=== PATIENT | male | born 1940 | race Caucasian/White ===

== ENCOUNTER 2021-04-25 09:11 | Day surgery (SDC) | payer MEDICARE ==
[2021-04-25] MEDS ORDERED: Propofol 200 MG/20 ML SDV IV ONE (09:12)
[2021-04-25] MEDS ORDERED: Sodium Chloride 0.9% 10 ML Syringe FLUSH PRN (09:15)
[2021-04-25] MEDS: Lactated Ringers 1,000 ML IV SCH (10:00)
[2021-04-25 14:15] VITALS: PULSE 53
[2021-04-25 14:16] VITALS: BP 135/65
== END 2021-04-25 12:10 | disposition home or self-care (01) ==
LOC: FB.SDS 09:11
PROVIDERS: ATTEND Surgery
DX: Z12.11 Encounter for screening for malignant neoplasm of colon (principal); K57.30 Diverticulosis of large intestine without perforation or abscess without bleeding; K21.9 Gastro-esophageal reflux disease without esophagitis; M19.90 Unspecified osteoarthritis, unspecified site; Z91.030 Bee allergy status; Z91.041 Radiographic dye allergy status; Z86.010 Personal history of colon polyps; Z90.49 Acquired absence of other specified parts of digestive tract; Z98.890 Other specified postprocedural states; Z79.82 Long term (current) use of aspirin; Z79.899 Other long term (current) drug therapy
CPT/HCPCS: 00811-QZ; J2704; J7120

== ENCOUNTER 2021-07-01 14:51 | Emergency (ER) | payer MEDICARE ==
[2021-07-01] MEDS ORDERED: Lidocaine 1% with EPINEPHrine 1:100,000 10 ML MDV INFILT ONE (14:52)
[2021-07-01 15:07] VITALS: BP 177/85; PULSE 61
[2021-07-01] MEDS: Bacitracin Oint 1 GM U/D Packet TOP ONE (15:07)
[2021-07-01] MEDS: Diphtheria,Pertussis(Acell),Tetanus Vaccine 0.5 ML Syringe IM ONE (15:08)
== END 2021-07-01 15:40 | disposition home or self-care (01) ==
LOC: FB.ED 14:51
DX: S01.412A Laceration without foreign body of left cheek and temporomandibular area, initial encounter (principal); I25.10 Atherosclerotic heart disease of native coronary artery without angina pectoris; K21.9 Gastro-esophageal reflux disease without esophagitis; M19.90 Unspecified osteoarthritis, unspecified site; Z91.030 Bee allergy status; Z91.041 Radiographic dye allergy status; Z79.82 Long term (current) use of aspirin; Z23 Encounter for immunization; W22.09XA Striking against other stationary object, initial encounter
CPT/HCPCS: 12013; 90471; 90715; 99281; 99282-25

== ENCOUNTER 2024-02-06 13:54 | Inpatient (IN) | payer MEDICARE ==
[2024-02-06] MEDS ORDERED: Acetaminophen 325 MG Tab PO PRN (15:06)
[2024-02-06] MEDS ORDERED: Carboxymethylcellulose Sodium 0.5% Ophth Soln 15 ML Bottle EYEBOTH PRN (15:19)
[2024-02-06 16:02] LABS: BILIRUBIN,URINE NEGATIVE (NEGATIVE); GLUCOSE,URINE NORMAL (NORMAL); KETONES,URINE NEGATIVE (NEGATIVE); LEUKOCYTE ESTERASE,URINE NEGATIVE (NEGATIVE); NITRITE,URINE NEGATIVE (NEGATIVE); OCCULT BLOOD,URINE TRACE (NEGATIVE); PROTEIN,URINE NEGATIVE (NEGATIVE); UROBILINOGEN,URINE NORMAL (NEGATIVE)
[2024-02-06] MEDS: Sodium Chloride 0.9% 10 ML Syringe FLUSH PRN (16:03)
[2024-02-06 16:15] LABS: BASOPHILS PERCENT AUTO 0.7 % (0.3-3.8); EOSINOPHILS ABSOLUTE AUTO 0.1 x10-3/uL (0.0-0.6); EOSINOPHILS PERCENT AUTO 1.6 % (0.1-6.8); HEMATOCRIT 35.2 % (38.3-50.1); HEMOGLOBIN 12.5 g/dL (12.9-17.7); LYMPHOCYTES ABSOLUTE AUTO 0.9 x10-3/uL (0.5-4.5); LYMPHOCYTES PERCENT AUTO 19.3 % (15.8-45.3); MEAN CORPUSCULAR HEMOGLOBIN 33.3 pg (27.0-33.3); MEAN CORPUSCULAR HGB CONC 35.4 g/dL (28.7-35.3); MEAN PLATELET VOLUME 7.8 fL (6.7-11.0); MONOCYTES ABSOLUTE AUTO 0.5 x10-3/uL (0.0-1.2); MONOCYTES PERCENT AUTO 9.3 % (5.5-15.2); NEUTROPHILS ABSOLUTE AUTO 3.4 x10-3/uL (1.7-6.9); NEUTROPHILS PERCENT AUTO 69.1 % (40.3-71.8); RED BLOOD CELL COUNT 3.75 x10(6)uL (3.90-5.90); RED CELL DISTRIBUTION WIDTH 13.5 % (12.4-15.0); WHITE BLOOD CELL COUNT,WBC 4.9 x10-3/uL (3.2-10.1)
[2024-02-06 16:20] LABS: APPEARANCE,URINE CLEAR (CLEAR); BACTERIA,URINE OCCASIONAL (NS); COLOR,URINE YELLOW (YELLOW); RBC,URINE 0-5 (0-5); SQUAMOUS EPITHELIAL CELLS,UR OCCASIONAL (NS,R,O); WBC,URINE 0-5 (0-5)
[2024-02-06 16:22] LABS: PLATELET COUNT,PLT 210 x10(3)uL (117-477)
[2024-02-06 16:27] LABS: BLOOD UREA NITROGEN,BUN 18 mg/dL (7-18); CALCIUM 9.4 mg/dL (8.6-10.2); CARBON DIOXIDE,CO2 27 mmol/L (21-32); CHLORIDE,CL 92 mmol/L (100-110); CREATININE 0.4 mg/dL (0.70-1.30); EST CRCL DRUG DOSING (CG) 123.85 mL/min; ESTIMATED GFR 109 mL/min (>60); GLUCOSE RANDOM 90 mg/dL (80-116); POTASSIUM,K 4.4 mmol/L (3.5-5.3); PROTEIN TOTAL,TP 7.5 g/dL (6.0-8.0); SODIUM,NA 125 mmol/L (135-145)
[2024-02-06 16:28] LABS: A/G RATIO 0.9; ALANINE AMINOTRANSFERASE,ALT 39 U/L (12-36); ALBUMIN 3.6 g/dL (3.2-4.6); ALKALINE PHOSPHATASE 91 IU/L (56-112); ASPARTATE AMNIOTRANSFERASE,AST 42 IU/L (5-25); BILIRUBIN TOTAL 0.7 mg/dL (0.1-1.3)
[2024-02-06] MEDS: Sodium Chloride 0.9% 1,000 ML IV SCH (17:23)
[2024-02-06] MEDS: Calcium Carbonate 500 MG Tablet PO SCH (17:42)
[2024-02-06] MEDS: Acetaminophen 500 MG Tab PO SCH (17:42)
[2024-02-06] MEDS ORDERED: Non-Formulary Medication 1 Each (Calcium Carbonate/Vitamin D3 [Caltrate 600 Plus D3 Tablet PO SCH (18:00)
[2024-02-06] MEDS: Psyllium Husk Powder Sugar Free 5.85 GM Packet PO SCH (21:56)
[2024-02-06] MEDS: Apixaban 5 MG Tab PO SCH (21:56)
[2024-02-06] MEDS: Beta-Carotene (Vitamin A) w/Vitamin C & E plus Minerals Tab PO SCH (21:56)
[2024-02-07 06:21] LABS: BASOPHILS PERCENT AUTO 0.9 % (0.3-3.8); EOSINOPHILS ABSOLUTE AUTO 0.1 x10-3/uL (0.0-0.6); EOSINOPHILS PERCENT AUTO 2.7 % (0.1-6.8); HEMATOCRIT 34.2 % (38.3-50.1); HEMOGLOBIN 11.9 g/dL (12.9-17.7); LYMPHOCYTES ABSOLUTE AUTO 0.8 x10-3/uL (0.5-4.5); LYMPHOCYTES PERCENT AUTO 19.6 % (15.8-45.3); MEAN CORPUSCULAR HGB CONC 34.9 g/dL (28.7-35.3); MEAN CORPUSCULAR VOLUME 94.5 fL (80.8-98.7); MONOCYTES ABSOLUTE AUTO 0.4 x10-3/uL (0.0-1.2); NEUTROPHILS ABSOLUTE AUTO 2.7 x10-3/uL (1.7-6.9); NEUTROPHILS PERCENT AUTO 67.8 % (40.3-71.8); PLATELET COUNT,PLT 222 x10(3)uL (117-477); RED BLOOD CELL COUNT 3.62 x10(6)uL (3.90-5.90); RED CELL DISTRIBUTION WIDTH 13.3 % (12.4-15.0); WHITE BLOOD CELL COUNT,WBC 4.1 x10-3/uL (3.2-10.1)
[2024-02-07 06:31] LABS: A/G RATIO 1.1; ALANINE AMINOTRANSFERASE,ALT 34 U/L (12-36); ALBUMIN 3.2 g/dL (3.2-4.6); ALKALINE PHOSPHATASE 88 IU/L (56-112); ASPARTATE AMNIOTRANSFERASE,AST 35 IU/L (5-25); BILIRUBIN TOTAL 0.3 mg/dL (0.1-1.3); BLOOD UREA NITROGEN,BUN 14 mg/dL (7-18); BUN/CREATININE RATIO 23.3 (9-20); CALCIUM 8.7 mg/dL (8.6-10.2); CARBON DIOXIDE,CO2 28 mmol/L (21-32); CHLORIDE,CL 97 mmol/L (100-110); CREATININE 0.6 mg/dL (0.70-1.30); EST CRCL DRUG DOSING (CG) 82.57 mL/min; ESTIMATED GFR 96 mL/min (>60); GLUCOSE RANDOM 96 mg/dL (80-116); POTASSIUM,K 4.4 mmol/L (3.5-5.3); PROTEIN TOTAL,TP 6.2 g/dL (6.0-8.0); SODIUM,NA 132 mmol/L (135-145)
[2024-02-07] MEDS: Cholecalciferol (Vitamin D3) 25 MCG Tab PO SCH (08:10)
[2024-02-07] MEDS: Ferrous Sulfate 325 MG Tab PO SCH (08:10)
[2024-02-07] MEDS: Aspirin 81 MG Tab.EC PO SCH (12:23)
[2024-02-07] MEDS: Cyanocobalamin (Vitamin B12) 500 MCG Tab PO SCH (12:23)
[2024-02-07] MEDS: Magnesium Oxide 400 MG Tab PO SCH (12:23)
[2024-02-08] MEDS: oxyCODONE 5 MG Tab PO PRN (04:40)
[2024-02-08 05:59] LABS: A/G RATIO 1.1; ALANINE AMINOTRANSFERASE,ALT 30 U/L (12-36); ALBUMIN 3.1 g/dL (3.2-4.6); ALKALINE PHOSPHATASE 85 IU/L (56-112); ASPARTATE AMNIOTRANSFERASE,AST 34 IU/L (5-25); BILIRUBIN TOTAL 0.3 mg/dL (0.1-1.3); BLOOD UREA NITROGEN,BUN 14 mg/dL (7-18); BUN/CREATININE RATIO 23.3 (9-20); CALCIUM 8.6 mg/dL (8.6-10.2); CARBON DIOXIDE,CO2 30 mmol/L (21-32); CHLORIDE,CL 96 mmol/L (100-110); CREATININE 0.6 mg/dL (0.70-1.30); EST CRCL DRUG DOSING (CG) 82.57 mL/min; ESTIMATED GFR 96 mL/min (>60); GLUCOSE RANDOM 105 mg/dL (80-116); POTASSIUM,K 4.4 mmol/L (3.5-5.3); SODIUM,NA 131 mmol/L (135-145)
[2024-02-08 13:31] VITALS: BP 126/56; PULSE 64
== END 2024-02-08 13:25 | disposition home health service (06) | DRG 552 ==
LOC: FB.MS 13:54
PROVIDERS: ADMIT Family Medicine; ATTEND Internal Medicine
DX: M40.209 Unspecified kyphosis, site unspecified (principal); E87.1 Hypo-osmolality and hyponatremia; R29.6 Repeated falls; I48.91 Unspecified atrial fibrillation; H26.9 Unspecified cataract; H40.9 Unspecified glaucoma; H54.7 Unspecified visual loss; K21.9 Gastro-esophageal reflux disease without esophagitis; N40.0 Benign prostatic hyperplasia without lower urinary tract symptoms; F32.A Depression, unspecified; M19.90 Unspecified osteoarthritis, unspecified site; M81.0 Age-related osteoporosis without current pathological fracture; Z96.659 Presence of unspecified artificial knee joint; M47.816 Spondylosis without myelopathy or radiculopathy, lumbar region; Z85.46 Personal history of malignant neoplasm of prostate; Z91.030 Bee allergy status; Z91.041 Radiographic dye allergy status; Z79.1 Long term (current) use of non-steroidal anti-inflammatories (NSAID); Z79.82 Long term (current) use of aspirin; Z79.899 Other long term (current) drug therapy; Z79.02 Long term (current) use of antithrombotics/antiplatelets; Z79.01 Long term (current) use of anticoagulants; Z90.49 Acquired absence of other specified parts of digestive tract; Z98.890 Other specified postprocedural states; Z90.79 Acquired absence of other genital organ(s)
CPT/HCPCS: 36415; 72131; 80053; 81001; 83605; 83735; 83880; 85025; 86140; 94150; 97161-GP; 97165-GO; 99222; 99238; A9270-GY; J7030